=== PATIENT | male | born 1955 | race Caucasian/White ===

== ENCOUNTER → 2018-06-18 | Outpatient (CLI) | payer OTHER ==
--- NOTE | 2018-06-19 14:43 | PE ---
EXAMINATION TYPE: PET CT fusion skull to thigh DATE OF EXAM: 06/18/2018 COMPARISON: NONE HISTORY: Solitary pulmonary nodule TECHNIQUE: Following the intravenous administration of 11.06 mCi of F-18 FDG, whole body images are performed from the skull base to the midthigh. Images are reviewed on the computer in the coronal, a xial, and sagittal planes. Reconstructed rotating images are created on independent workstation and reviewed on the computer. A noncontrast CT is performed in conjunction with the PET scan. SCAN: Initial Scan FINDINGS: SKULL BASE AND NECK: No suspicious hypermetabolic uptake is seen. CHEST, MEDIASTINUM, AND HILAR REGION: There is background of moderate emphysematous change. There is moderate biapical pleural/parenchymal scarring. There is dependent atelectasis in both lower lobes. In the right middle lobe just above diaphragm there is 10 x 8 mm nodule axial image 119 that is ameta bolic. No suspicious hypermetabolic uptake throughout the thorax is identified. Some prominent lymph nodes throughout the thorax most prominent in size in the prevascular space are present axial image 89. They are all ametabolic. ABDOMEN AND PELVIS: No suspicious hypermetabolic uptake is seen. OSSEOUS STRUCTURES: No suspicious hypermetabolic uptake is seen. OTHER CT: Few small mucous retention cysts or polyps in the inferior aspect bilateral maxillary sinus es are seen. There is moderate coronary artery calcification which is noted marker for coronary artery disease. Left greater than right bilateral gynecomastia is incidentally seen. There is low dense thickening right adrenal gland favoring benign lipid rich hyperplasia, there is lo w dense mass left adrenal gland axial image 148 favoring benign lipid rich adenoma. There is bulging near the umbilicus axial image 180 without hernia defect. There is suspected TURP type defect in the prostate gland which is not suspiciously enlarged. There is small fat-containing left inguinal hernia. There is multilevel spurring in the thoracolumbar spine. There is facet arthropathy in the lower lumb ar spine. Hemangioma T10 vertebral body level is present. IMPRESSION: No suspicious hypermetabolic uptake is seen in right middle lobe basilar nodule to sugges t malignancy. Would consider CT follow-up in 6 months time and documentation of 2 years stability to ensure benign etiology.
== END | disposition home or self-care (01) ==
LOC: RADPETMAIN 12:20
PROVIDERS: ATTEND Internal Medicine Critical Care Medicine
DX: R91.1 Solitary pulmonary nodule (principal)
CPT/HCPCS: 78815; A9552

== ENCOUNTER → 2019-01-16 | Outpatient (CLI) | payer OTHER ==
[2019-01-16 14:35] LABS: African American GFR (CKD) >90 (>60 ml/min/1.73 sqM); Blood Urea Nitrogen 15 mg/dL (9-20)
--- NOTE | 2019-01-16 17:09 | CT ---
EXAMINATION TYPE: CT chest w con DATE OF EXAM: 01/16/2019 COMPARISON: PET CT 06/18/2018 HISTORY: Nodule along MR 91.1 CT DLP: 670 mGycm, Automated exposure control for dose reduction was used. CONTRAST: Performed injected with 100 mL of Isovue 300. TECHNIQUE: Axial images were obtained at 5 mm thick sections. Reconstructed images are reviewed on [employer] computer in the coronal plane. FINDINGS: Portion of the thyroid visualized is normal. There is a 0.6 cm nodule adjacent to the major fissure near the right diaphragm within the right midd le lobe. Series 4 image 48. This is smaller than comparison. There is a 0.7 cm nodule in the posterio r left midlung. Series 4 image 37. This is new from comparison. No enlarged mediastinal or hilar adenopathy is evident. The ascending aorta diameter at the level o f the main pulmonary artery is 3.3 cm. The main pulmonary artery diameter at the bifurcation is 2.[address] sections are obtained through the upper abdomen. Left adrenal gland is thickened measuring 1.9 cm. IMPRESSIONS: 1. New posterior left lung nodule. 2. Diminished size right base lung nodule. 3. Stable thickened low-density left adrenal gland
== END | disposition home or self-care (01) ==
LOC: RADCTMAIN 13:43
PROVIDERS: ATTEND Internal Medicine Critical Care Medicine
DX: R91.1 Solitary pulmonary nodule (principal)
CPT/HCPCS: 82565; 84520; 71260; 36415; Q9967

== ENCOUNTER → 2019-06-30 | Outpatient (CLI) | payer OTHER ==
[2019-06-30 09:41] LABS: African American GFR (CKD) >90 (>60 ml/min/1.73 sqM); Blood Urea Nitrogen 15 mg/dL (9-20); Non-African American GFR(CKD) >90 (>60 ml/min/1.73 sqM)
--- NOTE | 2019-06-30 11:01 | CT ---
EXAMINATION TYPE: CT abdomen pelvis w con DATE OF EXAM: 06/30/2019 COMPARISON: None HISTORY: Prostate Cancer CT DLP: 1440 mGycm CONTRAST: CT scan of the abdomen and pelvis is performed with Oral Contrast and with IV Contrast, patient injec clarice with 100 ml mL of Isovue 300. FINDINGS: LUNG BASES-: No visible nodule. No infiltrate. LIVER/GB: No calcified gallstones. No space occupying hepatic lesion. Biliary tree is of normal ca liber. PANCREAS: No inflammation. No distinct mass. SPLEEN: No splenic enlargement. No lesion seen. ADRENALS: Left adrenal adenoma noted measuring 2.2 cm. Mild thickening right adrenal gland compatible with hyperplasia. KIDNEYS/BLADDER: No hydronephrosis. No nephrolithiasis. No distinct renal mass. Urinary bladder g rossly unremarkable. BOWEL: Normal appendix. Normal bowel caliber. No inflammation. GENITAL ORGANS: No gross abnormality. LYMPH NODES: No greater than 1cm abdominal or pelvic lymph nodes are appreciated. AORTA: No significant abnormality. OSSEOUS STRUCTURES: No significant abnormality is seen. OTHER: No significant additional abnormality is seen. IMPRESSION: 1. No evidence for metastatic disease at this time.
--- NOTE | 2019-06-30 13:26 | NM ---
EXAMINATION TYPE: NM bone scan whole body DATE OF EXAM: 06/30/2019 COMPARISON: CT 06/30/2019 HISTORY: Prostate cancer Delayed whole-body scanning was performed following the injection of 23.1 mCi Tc 99m MDP. Images acq uired 3 hours post injection. FINDINGS: Soft tissue uptake is normal. Uptake within the feet, hands and wrists, shoulders, sternoclavicular j oints and knees is likely degenerative. Uptake within the cervical spine likely due to facet arthropa thy. Uptake in the mandible and maxilla likely due to periodontal disease. There is a small focus of uptake involving the posterior right 10th rib which corresponds to an old fracture which appears heal ed. IMPRESSION: Metastatic disease is not evident.
== END | disposition home or self-care (01) ==
LOC: RADCTMAIN 08:54
PROVIDERS: ATTEND Urology
DX: C61 Malignant neoplasm of prostate (principal)
CPT/HCPCS: 82565; 84520; 74177; 36415; 78306; A9503; Q9967

== ENCOUNTER → 2019-07-14 | Outpatient (CLI) | payer OTHER ==
[2019-07-14 07:43] LABS: African American GFR (CKD) >90 (>60 ml/min/1.73 sqM); Blood Urea Nitrogen 18 mg/dL (9-20); Non-African American GFR(CKD) >90 (>60 ml/min/1.73 sqM)
--- NOTE | 2019-07-14 09:57 | CT ---
EXAMINATION TYPE: CT chest w con DATE OF EXAM: 07/14/2019 COMPARISON: 01/16/2019, PET/CT 06/18/2018 HISTORY: Pulmonary nodules CT DLP: 512.9 mGycm, Automated exposure control for dose reduction was used. CONTRAST: Performed injected with 100 mL of Isovue 300. TECHNIQUE: Axial images were obtained at 5 mm thick sections. Reconstructed images are reviewed on [employer] computer in the coronal plane. FINDINGS: Portion of the thyroid visualized is normal. There is some stable appearing apical increased lung markings. The posterior medial left upper lobe there is a 0.8 x 1.1 cm area of irregular density increased in s ize and density from the comparison. Given the changing nature of this nodule, series 4 image 17, Con healthcare consulting manager additional workup with PET scan. There is a 1.0 cm left periarterial lymph node. Series 3 image 29. A subcarinal lymph node measurin g 1.1 cm is present. There are scattered shotty lymph nodes present. The ascending aorta diameter at the level of the main pulmonary artery is 3.3 cm. The main pulmonary artery diameter at the bifurcat ion is 2.6 cm. Mild coronary artery calcification is present. Limited CT sections are obtained through the upper abdomen. Abdomen is essentially unremarkable. IMPRESSIONS: 1. Enlarging irregular density posterior medial left upper lobe. Recommend additional evaluation with PET/CT. 2. Enlarged mediastinal lymph nodes and shotty lymphadenopathy discussed above.
== END | disposition home or self-care (01) ==
LOC: RADCTMAIN 06:48
PROVIDERS: ATTEND Internal Medicine Critical Care Medicine
DX: R59.0 Localized enlarged lymph nodes (principal); R91.1 Solitary pulmonary nodule
CPT/HCPCS: 82565; 84520; 71260; 36415; Q9967

== ENCOUNTER → 2019-07-29 | Outpatient (CLI) | payer OTHER ==
--- NOTE | 2019-08-01 14:41 | PE ---
Nuclear medicine PET/CT HISTORY: Lung nodule, initial Patient received 11.7 mCi F-18 FDG intravenously in delayed scanning was performed from skull base to the mid thighs. Localization and attenuation correction CT scan was performed. Correlation to prior chest CT 07/14/2019 Neck and chest: The abnormal density described in prior chest CT is likely postinflammatory in the bass bpleural location, there is no associated hypermetabolic uptake. No evident cervical or supraclavicul ar uptake, no mediastinal, axillary, or hilar adenopathy or uptake. Coronary artery calcifications ar e present. No pleural or pericardial effusion. ABDOMEN: No retroperitoneal adenopathy. No adrenal mass. No evident liver mass, no suspicious hyperme tabolic uptake. Abdominal wall hernia present in the umbilical region contains fat and bowel loops wi thout obstruction. Osseous structures show facet arthropathy in the lumbar spine. Mild uptake at the posterior proximal right femur, lateral aspect of the right hip, right shoulder is thought to be physiologic. IMPRESSION: No suspicious hypermetabolic uptake. Additional findings above.
== END | disposition home or self-care (01) ==
LOC: RADPETMAIN 09:56
PROVIDERS: ATTEND Internal Medicine Critical Care Medicine
DX: J98.4 Other disorders of lung (principal); I25.10 Atherosclerotic heart disease of native coronary artery without angina pectoris
CPT/HCPCS: 78815; A9552

== ENCOUNTER → 2019-09-22 | Outpatient (CLI) | payer OTHER ==
--- NOTE | 2019-09-22 13:19 | XR ---
EXAMINATION TYPE: XR chest 2V DATE OF EXAM: 09/22/2019 COMPARISON: Chest CT July 14, 2019. PET CT July 29, 2019. HISTORY: Presurgical study. TECHNIQUE: Frontal and lateral views of the chest are obtained. FINDINGS: There is chronic emphysematous change without suspicious new focal air space opacity, pleu ral effusion, or pneumothorax seen. The cardiac silhouette size is stable and upper limits of normal with atherosclerotic aorta. Hemangioma involving roughly T10 vertebra is redemonstrated. IMPRESSION: Chronic emphysematous changes without acute pulmonary process.
[2019-09-22 13:59] LABS: Anisocytosis Marked; HGB 8.6 gm/dL (13.0-17.5); Hypochromasia Marked; MCH 21.3 pg (25.0-35.0); MCHC 26.9 g/dL (31.0-37.0); MCV 79.2 fL (80.0-100.0); Microcytosis Moderate; Platelet Count 445 k/uL (150-450); Poikilocytosis Slight; RBC 4.04 m/uL (4.30-5.90); RDW 24.3 % (11.5-15.5); WBC 5.5 k/uL (3.8-10.6)
[2019-09-22 14:04] LABS: African American GFR (CKD) >90 (>60 ml/min/1.73 sqM); Anion Gap 7 mmol/L; Blood Urea Nitrogen 16 mg/dL (9-20); Carbon Dioxide 24 mmol/L (22-30); Chloride 109 mmol/L (98-107); Glucose 140 mg/dL (74-99); Non-African American GFR(CKD) >90 (>60 ml/min/1.73 sqM); Potassium 4.6 mmol/L (3.5-5.1); Sodium 140 mmol/L (137-145)
[2019-09-22 14:51] LABS: Basophils # (M) 0.06 k/uL (0-0.2); Eosinophils # (M) 0.28 k/uL (0-0.7); Lymphocytes # (M) 1.43 k/uL (1.0-4.8); Monocytes # (M) 0.22 k/uL (0-1.0); Neutrophils # (M) 3.52 k/uL (1.3-7.7); Neutrophils % (M) 64 %; Nucleated Red Blood Cells 0 /100 WBC (0-0); Total Cells Counted 100
[2019-09-22 14:52] LABS: Mixed Population RBC Present; Target Cells Present
== END | disposition home or self-care (01) ==
LOC: LABPAT 12:52
PROVIDERS: ATTEND Urology
DX: Z01.818 Encounter for other preprocedural examination (principal); I10 Essential (primary) hypertension; C61 Malignant neoplasm of prostate; E11.9 Type 2 diabetes mellitus without complications; R05 Cough
CPT/HCPCS: 36415; 71046; 80048; 85025

== ENCOUNTER 2019-09-29 10:57 | Observation (INO) | payer OTHER ==
--- NOTE | 2019-09-18 09:18 | P.HPIHPCON ---
History of Present Illness H&P Date: 09/29/19 Chief Complaint: Prostate cancer 64 -year-old male with history of 4+4 Shakir 8 prostate cancer. We discussed with him the options including surgery and radiation therapy. We discussed the risk and benefits with him of each approach. Of note he has history of TURP. I discussed with him risk of Erectile dysfunction and urinary incontinence. I also discussed with him risk of injury to nearby organs including bowels, ureters, rectum and blood vessels. I also discussed the risk from anesthesia with him. Which included blood clots, heart attack, stroke and even . He understood all the risk and agreed to proceed with a robotic-assisted radical prostatectomy and pelvic lymph node dissection Consent for Procedure: I have explained the operation/procedure to the patient, including the risks, benefits, side effects, alternative therapies (including not receiving the proposed treatment or service), the likelihood of the patient achieving his/her goals, and potential recuperation problems for the procedure/sedation/analgesia, as well as any blood products, if indicated. I also explained to the patient the risks, benefits and side effects of the alternatives, as well as the risks related to not receiving the proposed procedure, care, treatment, or services. - Constitutional Constitutional: Denies chills, Denies fever - EENT Ears, nose, mouth and throat: Denies headache, Denies sore throat - Cardiovascular Cardiovascular: Denies chest pain, Denies shortness of breath - Respiratory Respiratory: Denies cough, Denies 7 - Gastrointestinal Gastrointestinal: Denies abdominal pain, Denies diarrhea, Denies nausea, Denies vomiting - Genitourinary (Male) Genitourinary: Denies dysuria, Denies hematuria Past Medical History Past Medical History: No Reported History History of Any Multi-Drug Resistant Organisms: None Reported Past Surgical History: Joint Replacement Past Psychological History: No Psychological Hx Reported Smoking Status: Current every day smoker Past Alcohol Use History: Heavy Past Drug Use History: None Reported Medications and Allergies Home Medications Medication Instructions Recorded Confirmed Type No Known Home Medications 01/25/16 01/25/16 History Allergies Allergy/AdvReac Type Severity Reaction Status Date / Time No Known Allergies Allergy Verified 01/25/16 19:55 Surgical - Exam - General well developed, well nourished, no distress - Eyes normal ocular movement, no icteric - Respiratory normal expansion, normal respiratory effort - Abdomen Abdomen: soft, non tender, no guarding, no rigid, no rebound - Psychiatric oriented to time, oriented to person, oriented to place, speech is normal, memory intact Assessment and Plan Assessment: 64 yo male with hx of shakir 8 prostate cancer -OR for robotic prostatectomy with PLND
[2019-09-26 08:37] VITALS: BMI 33.7
[2019-09-29 11:41] LABS: Glucose,Whole Blood 95 mg/dL (75-99)
[2019-09-29] MEDS ORDERED: ONDANSETRON 4 MG/2 ML VIAL IVP ONE (11:45)
[2019-09-29] MEDS ORDERED: LIDOCAINE 1% (10MG/ML) FOR IV START INTRADERMA ONE ×2 (11:45)
[2019-09-29] MEDS ORDERED: LACTATED RINGERS 1,000 ML IV ONE ×3 (11:45→14:24)
[2019-09-29] MEDS ORDERED: fentaNYL (PF) 50 MCG/ML 2 ML AMP ONE (11:56)
[2019-09-29] MEDS ORDERED: PROPOFOL 10 MG/ML 20 ML VIAL IV ONE (11:56)
[2019-09-29] MEDS ORDERED: GLYCOPYRROLATE 0.2 MG/ML 2 ML VIAL ONE (11:56)
[2019-09-29] MEDS ORDERED: MIDAZOLAM 2 MG/2 ML VIAL ONE (11:56)
[2019-09-29] MEDS ORDERED: ROCURONIUM BROMIDE 10 MG/ML 5 ML VIAL IV ONE (11:56)
[2019-09-29] MEDS ORDERED: .MORPHINE SULFATE (INJ) 10 MG/ML SYRINGE ONE (11:56)
[2019-09-29] MEDS ORDERED: LIDOCAINE 1% INJ 10MG/ML (20 ML MDV) ONE (11:56)
[2019-09-29] MEDS ORDERED: NEOSTIGMINE 1 MG/ML 10 ML VIAL ONE (11:56)
[2019-09-29] MEDS ORDERED: DEXAMETHASONE SOD PHOSPHATE 10 MG/ML 1 ML VIAL IV ONE (12:02)
[2019-09-29] MEDS ORDERED: HYDROmorphone 1 MG/ML 1 ML SYRINGE IVP PRN (12:17)
[2019-09-29] MEDS ORDERED: BUPIVACAINE (PF) 0.25% 30 ML VIAL SQ ONE (12:37)
[2019-09-29] MEDS ORDERED: ALBUTEROL NEBULIZED 2.5 MG/3 ML INHALATION PRN (17:24)
[2019-09-29] MEDS ORDERED: metFORMIN 500 MG TAB PO SCH (17:30)
[2019-09-29] MEDS ORDERED: HYDROmorphone 1 MG/ML 1 ML SYRINGE IVP ONE ×3 (18:00→18:07)
[2019-09-29 18:14] LABS: Glucose,Whole Blood 242 mg/dL (75-99)
[2019-09-29] MEDS ORDERED: INSULIN ASPART (NovoLOG) 100 UNIT/ML VIAL SQ ONE (18:17)
[2019-09-29] MEDS: HEPARIN SODIUM,PORCINE 5,000 UNIT/ML 1 ML VIAL SQ SCH ×2 (19:09→23:37)
[2019-09-29] MEDS: KETOROLAC 30 MG/ML 1 ML VIAL IVP SCH ×2 (19:10→23:37)
[2019-09-29] MEDS: FERROUS SULFATE 325 MG TAB PO SCH (19:10)
[2019-09-29] MEDS: D5-0.45% NACL WITH KCL 20MEQ/L 1,000 ML IV SCH (19:16)
[2019-09-30] MEDS: D5-0.45% NACL WITH KCL 20MEQ/L 1,000 ML IV SCH ×2 (02:27→13:43)
[2019-09-30 05:27] VITALS: RESP 16
[2019-09-30] MEDS: KETOROLAC 30 MG/ML 1 ML VIAL IVP SCH ×2 (05:34→13:42)
[2019-09-30 06:22] LABS: Anisocytosis Moderate; Basophils % (A) 0 %; Eosinophils % (A) 0 %; HCT 32.2 % (39.0-53.0); HGB 8.8 gm/dL (13.0-17.5); Hypochromasia Marked; Lymphocytes % (A) 10 %; MCH 21.9 pg (25.0-35.0); MCHC 27.5 g/dL (31.0-37.0); MCV 79.6 fL (80.0-100.0); Microcytosis Moderate; Monocytes # (A) 0.7 k/uL (0-1.0); Monocytes % (A) 7 %; Neutrophils # (A) 8.4 k/uL (1.3-7.7); Neutrophils % (A) 81 %; Platelet Count 314 k/uL (150-450); RBC 4.04 m/uL (4.30-5.90); RDW 23.4 % (11.5-15.5); WBC 10.3 k/uL (3.8-10.6)
[2019-09-30 06:30] LABS: African American GFR (CKD) >90 (>60 ml/min/1.73 sqM); Anion Gap 9 mmol/L; Blood Urea Nitrogen 12 mg/dL (9-20); Calcium 8.5 mg/dL (8.4-10.2); Carbon Dioxide 24 mmol/L (22-30); Chloride 102 mmol/L (98-107); Glucose 185 mg/dL (74-99); Non-African American GFR(CKD) >90 (>60 ml/min/1.73 sqM); Sodium 135 mmol/L (137-145)
[2019-09-30] MEDS ORDERED: glipiZIDE 10 MG TAB PO SCH (07:30)
[2019-09-30] MEDS ORDERED: NICOTINE 21MG/24HR PATCH TRANSDERM SCH (09:00)
[2019-09-30] MEDS: FERROUS SULFATE 325 MG TAB PO SCH (09:16)
[2019-09-30] MEDS: HEPARIN SODIUM,PORCINE 5,000 UNIT/ML 1 ML VIAL SQ SCH ×2 (09:17→16:53)
[2019-09-30 13:14] VITALS: BP 149/72; PULSE 95; TEMP 99
--- NOTE | 2019-09-30 14:12 | P.OP ---
Date of Procedure: 09/29/19 Preoperative Diagnosis: prostate cancer Postoperative Diagnosis: same Procedure(s) Performed: Robotic assisted laproscopic radical prostatectomy and pelvic lymph node dissection Anesthesia: CACHORRO Surgeon: Jose Juan Villalobos Foam Charger #1: Andrea Harrell Estimated Blood Loss (ml): 200 Pathology: other (prostate, bilateral seminal vesicles and bilateral pelvic lymph node) Condition: stable Disposition: PACU Indications for Procedure: 64 -year-old male with history of 4+4 Vanita 8 prostate cancer. We discussed with him the options including surgery and radiation therapy. We discussed the risk and benefits with him of each approach. Of note he has history of TURP. I discussed with him risk of Erectile dysfunction and urinary incontinence. I also discussed with him risk of injury to nearby organs including bowels, ureters, rectum and blood vessels. I also discussed the risk from anesthesia with him. Which included blood clots, heart attack, stroke and even . He understood all the risk and agreed to proceed with a robotic-assisted radical p rostatectomy and pelvic lymph node dissection Operative Findings: small right sided inguinal hernia large TURP defect, bladder neck scaring secondary to TURP defect Anterior portion of the prostate was adhered to the pubic bone adhesions along the umbilical hernia repair Description of Procedure: After preoperative antibiotics were started, the patient was taken to the operating room. Anesthesia was induced and the patient was placed in a low lithitomy position, with adequate padding of the pressure points, shoulders, back, legs and arms. He was then prepped and draped in the standard fashion. A critical pause was performed using two patient identifiers. A 16F olguin catheter was placed to gravity drainage. A pneumo-peritoneum was created with placement of a Veress needle to 20 mm Hg without complication, and a 8 Fr trocar was placed above the umbillicus. Under direct vision a 8mm robotic ports was placed lateral to each rectus slightly below the camera port. The left iliac fossa 8mm port was placed. The right oncology physician assistant right iliac fossa 12mm port and right paramedian 5mm portwere placed. There were adhesion along the previous umbilical hernia repair that were taken down sharply. After the patient was placed in the trendelenberg position, the robot was then docked to the 8mm robotic ports and then each robotic arm and tower was checked in relation to the patient's legs and hands to avoid inadvertent compression. The peritoneal cavity was inspected. of note patient had a small right sided inuinal hernia. There were adhesion along the left side of lower quadrant that was taken down sharply/ An inverted U-shaped incision began laterally to the left medial umbilical ligament and extended high across the midline to the right umbilical ligament. The limbs of the "U" extended to the level of the vasa on both sides. We next developed the preperitoneal space and the space of Retzius. the enopelvic fascia was opened to better exposed the lateral edge of the prostate. Cautery was used to dissected the bladder away from the prostate. Of note patient bladder neck was scarred and poorly defined secondary to his TURP defect. Additionally he had a large TURP defect. The trigone ridge was visualized and bilateral ureteral orfice was visualized with urine efflux. The ureteral orifices were away from the bladder neck incision. The posterior bladder neck was then incised and dissected away from the prostate, of note the plane was very stuck with significant scar tissue. The vas and the seminal vesicles were now exposed and dissected to their insertions into the prostate and were not spared. The posterior layer of the Denonvillier's fascia was incised to enter into the plane between prostate and perirectal fat . the posterior dissection was carried to the apex, Each lateral pedicle was controlled with clips and cautery for hemostasis. Left wide nerve dissection and right standard nerve dissection was performed. Of note patient had minimal anterior tissue secondary to the TURP, additionally the prostate apex was stuck to the pubic bone. Using cautery I was able to dissect the apex of of the pubic bone. The puboprostatic ligament was incised where it inserted into the apex of the prostate and a plane between urethra and dorsal venous complex developed to expose the anterior urethral surface. The anterior wall of the urethra was transected with the cut setting a few millimeters distal to the apex of the prostate. The dorsal vein was ligated using 3-0 V lock. Bilateral extended pelvic lymph node dissection was performed. Care was taken to avoid injury to the obturator nerve and iliac vessels. The urethrovesical anastomosis was performed . the posterior denovillers was reapproximated using 3-0 V lock. A 9 and 9 inch 3-0 V-Lock suture was used to anastomose the urethra and bladder, starting at the 6:00 posterior position. Mucosa was secured in every stitch, to ensure a mucosa to mucosa anastomosis. The stitch was regularly cinched and the anastomosis tightened. Care was taken to not violate the ureteral orifices. Bladder neck reconstruction was performed. The Olguin catheter was advanced, the bladder filled, and the anastomosis was watertight at 150 mL. An new 18 Fr olguin was placed and balloon was filled with 10 cc. The periumbilical fascia was closed with 1-0-PDS suture in figure of 8 fashion. All ports were closed with a subcuticular 4-0 monocryl and Dermabond. Sponge, instrument, and needle counts were correct at the end of the case x2. All speci mens including prostate and lymph nodes were sent to pathology for diagnosis and will be available in a week. The patient tolerated the surgery well and without complication. He awoke without difficulty and was taken to the recovery room in stable condition
--- NOTE | 2019-09-30 14:16 | P.DS ---
Providers Date of admission: 09/30/19 07:51 09/29/19 Expected date of discharge: 09/30/19 Attending physician: Jose Juan Villalobos MD Primary care physician: Venkat Marie [facility] Course: Mr Vieyra is 64 yo with hx of prostate cancer, he underwent robotic prostatectomy on 09/28. please see Op note dated 09/28 for full surgery detail. Patient was admitted to Hospital. He did well in the post operative period, he was discharge home on POD #1 with olguin. At time of discharge he was tolerating diet, ambulating and pain was well controlled Patient Condition at Discharge: Good Plan - Discharge Summary Discharge Rx Participant: Yes New Discharge Prescriptions: No Action Ferrous Sulfate [Feosol] 325 mg PO BID glipiZIDE [Glucotrol] 10 mg PO DAILY Pioglitazone [Actos] 30 mg PO DAILY metFORMIN HCL 500 mg PO W/SUPPER Nicotine 21Mg/24Hr Patch [Habitrol] 1 each TRANSDERM DAILY Albuterol Nebulized [Ventolin Nebulized] 2.5 mg INHALATION TID PRN PRN Reason: sob Albuterol Sulfate [Albuterol Sulfate Hfa] 1 puff PO QID PRN PRN Reason: sob Discharge Medication List Albuterol Nebulized [Ventolin Nebulized] 2.5 mg INHALATION TID PRN 09/26/19 [History] Albuterol Sulfate [Albuterol Sulfate Hfa] 1 puff PO QID PRN 09/26/19 [History] Ferrous Sulfate [Feosol] 325 mg PO BID 09/26/19 [History] Nicotine 21Mg/24Hr Patch [Habitrol] 1 each TRANSDERM DAILY 09/26/19 [History] Pioglitazone [Actos] 30 mg PO DAILY 09/26/19 [History] glipiZIDE [Glucotrol] 10 mg PO DAILY 09/26/19 [History] metFORMIN HCL 500 mg PO W/SUPPER 09/26/19 [History] Follow up Appointment(s)/Referral(s): Jose Juan Villalobos MD [STAFF PHYSICIAN] - 2 Weeks Activity/Diet/Wound Care/Special Instructions: You may see some blood in the urine Drink plenty of fluid No heavy lifting or straining for next 6 weeks You may shower starting tomorrow, but no baths for 4 weeks Follow up in 2 week for catheter removal Continue to use your incentive spiramoter at home Discharge Disposition: HOME SELF-CARE
== END 2019-09-30 17:07 | disposition home or self-care (01) ==
LOC: OR 10:57 → 5NMEDONC 17:27 → OR 09-30 07:51 → 5NMEDONC 09-30 07:51
PROVIDERS: ADMIT Urology; ATTEND Urology
DX: C61 Malignant neoplasm of prostate (principal); F17.200 Nicotine dependence, unspecified, uncomplicated; I10 Essential (primary) hypertension; E11.9 Type 2 diabetes mellitus without complications; E61.1 Iron deficiency; K40.90 Unilateral inguinal hernia, without obstruction or gangrene, not specified as recurrent; Z79.84 Long term (current) use of oral hypoglycemic drugs; Z80.0 Family history of malignant neoplasm of digestive organs; Z79.899 Other long term (current) drug therapy
CPT/HCPCS: 55866; 38571; 94760; 86900; 86901; 80048; 85025; 86850; 88307; 88309; G0378; S4990; J2250; J1644 ×2; J1100; J2710; J2270; J0690; J2405; J2001; J3010; J1885 ×2; J1170; J2704